=== PATIENT | male | born 1940 | race Caucasian/White ===

== ENCOUNTER → 2016-08-16 | Outpatient (CLI) | payer MEDICARE | LOC: LAB 14:20 | PROVIDERS: ATTEND Urology | DX: C67.8 Malignant neoplasm of overlapping sites of bladder (principal) | CPT/HCPCS: 88112 ==

== ENCOUNTER 2016-08-19 12:16 | Emergency (ER) | payer MEDICARE ==
[~2016-08-19] VITALS: Ht 185.4 cm; Wt 157.0 kg
[2016-08-19] MEDS ORDERED: methylPREDNISolone 125 MG (Solu-MEDROL) VIAL IV STA (13:02)
[2016-08-19] MEDS ORDERED: ALBUTEROL/IPRATROPIUM 3MG-0.5MG/3ML (DUONEB) NEB VIAL INH ONE (13:05)
[2016-08-19 13:12] LABS: BASOPHILS % (AUTO) 0 % (0-2); EOSINOPHILS # (AUTO) 0.1 10^3uL; EOSINOPHILS % (AUTO) 1 % (0-4); LYMPHOCYTES # (AUTO) 0.7 X10^3; MEAN CORPUSCULAR HEMOGLOBIN 31.3 PG (26.0-34.0); MEAN CORPUSCULAR HGB CONC 34.2 g/dL (31.0-37.0); MEAN CORPUSCULAR VOLUME 91 FL (80-100); MEAN PLATELET VOLUME 11.2 FL (6.0-9.5); MONOCYTES # (AUTO) 0.9 X10^3; MONOCYTES % (AUTO) 11 % (3-11); NEUTROPHILS # (AUTO) 6.1 X10^3; NEUTROPHILS % (AUTO) 79 % (51-67); PLATELET COUNT 171 10^3uL (150-450)
[2016-08-19 13:20] LABS: ALBUMIN 4.2 g/dL (3.4-5.0); ANION GAP 14.4 MEQ/L (3-15); CALCULATED IONIZED CALCIUM 3.7 mg/dL (3.8-4.6); TOTAL PROTEIN 7.6 g/dL (6.4-8.5)
[2016-08-19] MEDS ORDERED: SODIUM CHLORIDE FLUSH 10 ML SYR IV PRN (13:25)
[2016-08-19] MEDS ORDERED: SODIUM CHLORIDE FLUSH 3 ML SYR IV PRN (13:25)
[2016-08-19 13:31] LABS: INFLUENZA VIRUS TYPE A ANTIBOD Positive (NEGATIVE); INFLUENZA VIRUS TYPE B ANTIBOD Negative (NEGATIVE)
[2016-08-19] MEDS ORDERED: ALBUTEROL 0.083% NEB SOLUTION 2.5 MG/3 ML VIAL INH STA (15:17)
[2016-08-19 19:53] VITALS: BP 124/76
== END 2016-08-19 18:26 | disposition home or self-care (01) ==
LOC: EDUNIT# 12:16 → ED 12:18
DX: J11.1 Influenza due to unidentified influenza virus with other respiratory manifestations (principal); J44.1 Chronic obstructive pulmonary disease with (acute) exacerbation; Z87.891 Personal history of nicotine dependence
CPT/HCPCS: 36415; 71020; 80053; 85025; 87502; 94640; 94761; 96374; 99285; J2930; J7613; 99284

== ENCOUNTER 2016-09-16 10:57 | Day surgery (SDC) | payer MEDICARE ==
[~2016-09-16] VITALS: Ht 185.4 cm; Wt 152.3 kg
[~2016-09-16 10:57] MED LIST: LACTATED RINGERS 1,000 ML IV SCH; LEVOFLOXACIN 500 MG TAB (LEVAQUIN) PO SCH; SODIUM CHLORIDE FLUSH 3 ML SYR IV PRN
[2016-09-16 11:08] VITALS: BP 119/77
[2016-09-16] MEDS ORDERED: LIDOCAINE 2% (XYLOCAINE) 10 ML UROJECT MM ONE (11:09)
[2016-09-16 12:16] VITALS: BP 120/78
== END 2016-09-16 12:18 | disposition home or self-care (01) ==
LOC: ASC 10:57
PROVIDERS: ATTEND Urology
DX: Z48.3 Aftercare following surgery for neoplasm (principal); Z85.51 Personal history of malignant neoplasm of bladder; N40.0 Benign prostatic hyperplasia without lower urinary tract symptoms; I10 Essential (primary) hypertension; E11.9 Type 2 diabetes mellitus without complications; J44.9 Chronic obstructive pulmonary disease, unspecified; J45.909 Unspecified asthma, uncomplicated; I48.91 Unspecified atrial fibrillation; E78.5 Hyperlipidemia, unspecified; E66.01 Morbid (severe) obesity due to excess calories; Z68.41 Body mass index [BMI] 40.0-44.9, adult; Z79.01 Long term (current) use of anticoagulants; Z79.4 Long term (current) use of insulin; Z79.84 Long term (current) use of oral hypoglycemic drugs
CPT/HCPCS: 52000; A9270